=== PATIENT | male | born 1950 | race Caucasian/White ===

== ENCOUNTER 2022-02-06 16:52 | Emergency (ER) | payer MEDICARE ==
[2022-02-06 18:22] LABS: HEMOGLOBIN 15.9 gm/dl (14.0-17.5); RED BLOOD COUNT 5.23 M/UL (4.20-5.50); WHITE BLOOD COUNT 8.4 K/UL (4.5-11.0)
[2022-02-06] MEDS ORDERED: NORVASC5 MG PO (22:11)
== END 2022-02-06 22:23 | disposition home or self-care (01) ==
LOC: ER1 16:52
PROVIDERS: Emergency Medicine
DX: I10 Essential (primary) hypertension (principal); Z20.822 Contact with and (suspected) exposure to COVID-19
CPT/HCPCS: 80053; 82550; 82553; 84484; 85025; 85610; 85730; 93005; 93925; 93971; 96374; 99284; J0360; U0002